=== PATIENT | male | born 1950 | race Two or more races ===

== ENCOUNTER 2022-01-13 19:27 | Inpatient (IN) | payer MEDICARE, MEDICAID ==
[~2022-01-13] VITALS: Ht 165.1 cm; Wt 61.9 kg
[2022-01-13] MEDS ORDERED: LABETALOL HCL 5 MG/ML 4ML SYRINGE IV ONE (20:30)
[2022-01-13 20:50] LABS: Basophils # (auto) 0 10 ^3/uL (0-0.2); Basophils % (auto) 0.5 % (0.0-2.0); Eosinophils # (auto) 0.6 10 ^3/uL (0-0.8); Eosinophils % (auto) 5.9 % (0.0-7.0); Hematocrit 42.7 % (41.0-53.0); Hemoglobin 14.1 g/dL (13.5-17.5); Lymphocytes # (auto) 1.7 10 ^3/uL (0.4-5.4); Mean Corpuscular Hemoglobin 28.4 pg (28.0-32.0); Mean Corpuscular Volume 85.9 fL (80.0-100.0); Monocytes # (auto) 0.7 10 ^3/uL (0-1.3); Monocytes % (auto) 7.1 % (0.0-12.0); Neutrophils # (auto) 6.5 10 ^3/uL (1.6-8.6); Neutrophils % (auto) 68.5 % (37.0-80.0); Red Blood Cells 4.97 10^6/uL (4.5-5.90); White Blood Cell 9.4 10^3/uL (4.4-10.8)
[2022-01-13 20:58] LABS: Albumin 3.7 g/dL (3.4-5.0); Calcium 8.9 mg/dL (8.5-10.1); Potassium 4.3 mmol/L (3.5-5.1)
[2022-01-13] MEDS ORDERED: CLOP75TA70 PO (20:59)
[2022-01-13] MEDS ORDERED: ASPI-543 PO (20:59)
[2022-01-13] MEDS ORDERED: METF-370 PO (20:59)
[2022-01-13] MEDS ORDERED: LISI40TA11 PO (20:59)
[2022-01-13] MEDS ORDERED: TAMS0.4C36 PO (20:59)
[2022-01-13] MEDS ORDERED: FURO40TA4 PO (20:59)
[2022-01-13] MEDS ORDERED: CARV6.2551 PO (20:59)
[2022-01-13 21:03] LABS: BUN/Creatinine Ratio 27.8; Bilirubin, Total 0.8 mg/dL (0.2-1.0); Total Protein 7.5 g/dL (6.4-8.2)
[2022-01-13] MEDS ORDERED: ASPirin 81 mg TAB PO ONE (21:30)
[2022-01-13] MEDS ORDERED: CLOPIDOGREL 300 MG TAB PO ONE (21:30)
[2022-01-13] MEDS: SODIUM CHLOR 0.9% PF (SALINE LOCK) 10ML VIAL/SYR IV SCH (21:41)
[2022-01-13 22:45] LABS: Urine Bacteria FEW /hpf (None Seen); Urine Blood TRACE /uL (Negative); Urine Specific Gravity 1.005 (1.001-1.035); Urine WBC 1 /hpf (0 - 3)
[2022-01-14] MEDS: SODIUM CHLOR 0.9% PF (SALINE LOCK) 10ML VIAL/SYR IV SCH ×2 (00:03→01:34)
[2022-01-14] MEDS ORDERED: MORPHINE SULFATE INJ 2 MG/ml SYRG IV PRN (02:15)
[2022-01-14] MEDS ORDERED: ONDANSETRON HCL 4 MG/2 ML VIAL IV PRN (02:15)
[2022-01-14] MEDS ORDERED: DEXTROSE (50%) 50ML SYRG IV PRN (02:15)
[2022-01-14] MEDS ORDERED: NITROGLYCERIN 0.4 MG SL TAB SL PRN (02:15)
[2022-01-14] MEDS ORDERED: ENOXAPARIN SOD 100 MG/1 ML SYRINGE SC ONE (02:15)
[2022-01-14] MEDS ORDERED: ACETAMINOPHEN 325 MG TAB PO PRN (02:15)
[2022-01-14] MEDS ORDERED: FUROSEMIDE 40 MG TAB PO SCH (06:00)
[2022-01-14] MEDS: InsuLIN REG 1unit/0.01ml Soln (100units/ml) SC SCH ×4 (06:47→21:17)
[2022-01-14] MEDS: ACCU-CHEK COMFORT CURVE STRIP VI SCH ×4 (06:48→21:17)
[2022-01-14] MEDS ORDERED: LISINOPRIL 20 MG TAB PO SCH (10:00)
[2022-01-14] MEDS: ASPirin 81 mg TAB PO SCH (10:17)
[2022-01-14] MEDS: PANTOPRAZOLE 40 MG TAB PO SCH (10:18)
[2022-01-14] MEDS: CLOPIDOGREL BISULFATE 75 MG TAB PO SCH (10:18)
[2022-01-14] MEDS: CARVEDILOL 3.125 MG TAB PO SCH ×2 (10:19→21:18)
[2022-01-14] MEDS ORDERED: SODIUM CHLORIDE 0.9% 1,000 ML IV ONE (13:30)
[2022-01-14 14:57] LABS: Calcium 9.1 mg/dL (8.5-10.1); Potassium 4.2 mmol/L (3.5-5.1)
[2022-01-14 15:00] LABS: BUN/Creatinine Ratio 28.5
[2022-01-14] MEDS: TAMSULOSIN HYDROCHLORIDE 0.4 MG CAP PO SCH (18:16)
[2022-01-14 20:33] VITALS: BP 130/64
[2022-01-14] MEDS ORDERED: ENOXAPARIN SOD 30 MG/0.3 ML SYRINGE SC SCH (22:00)
[2022-01-14 22:40] VITALS: BP 130/64
[2022-01-15] VITALS (10 sets, daily range): BP systolic 107–161; BP diastolic 41–62
[2022-01-15 05:59] LABS: Basophils # (auto) 0 10 ^3/uL (0-0.2); Basophils % (auto) 0.6 % (0.0-2.0); Eosinophils # (auto) 0.5 10 ^3/uL (0-0.8); Eosinophils % (auto) 7.2 % (0.0-7.0); Hematocrit 41.3 % (41.0-53.0); Hemoglobin 13.2 g/dL (13.5-17.5); Lymphocytes # (auto) 1.5 10 ^3/uL (0.4-5.4); Mean Corpuscular Hemoglobin 27.4 pg (28.0-32.0); Mean Corpuscular Hgb Conc. 31.9 g/dL (32.0-36.0); Monocytes # (auto) 0.5 10 ^3/uL (0-1.3); Monocytes % (auto) 8.6 % (0.0-12.0); Neutrophils # (auto) 3.8 10 ^3/uL (1.6-8.6); Neutrophils % (auto) 60.6 % (37.0-80.0); Nucleated Red Blood Cells % 0.1 %; Red Blood Cells 4.81 10^6/uL (4.5-5.90); Red Cell Distribution Width 14.8 % (11.8-14.3); White Blood Cell 6.3 10^3/uL (4.4-10.8)
[2022-01-15 06:04] LABS: INR 1.06 (0.9-1.15); Partial Thromboplastin Time 32.2 sec (24.6-33.4)
[2022-01-15] MEDS: SODIUM CHLOR 0.9% PF (SALINE LOCK) 10ML VIAL/SYR IV SCH ×3 (06:18→21:45)
[2022-01-15] MEDS: InsuLIN REG 1unit/0.01ml Soln (100units/ml) SC SCH ×4 (06:18→21:58)
[2022-01-15] MEDS: ACCU-CHEK COMFORT CURVE STRIP VI SCH ×4 (06:18→21:57)
[2022-01-15 06:33] LABS: BUN/Creatinine Ratio 29.5; Bilirubin, Total 0.5 mg/dL (0.2-1.0); Calcium 8.7 mg/dL (8.5-10.1); Total Protein 6.2 g/dL (6.4-8.2)
[2022-01-15] MEDS: PANTOPRAZOLE 40 MG TAB PO SCH (09:05)
[2022-01-15] MEDS: CLOPIDOGREL BISULFATE 75 MG TAB PO SCH (09:15)
[2022-01-15] MEDS: CARVEDILOL 3.125 MG TAB PO SCH ×2 (09:17→21:55)
[2022-01-15] MEDS: ASPirin 81 mg TAB PO SCH (09:18)
[2022-01-15] MEDS ORDERED: LIDOCAINE 2%HCL (LOCAL ANESTH.) INJ 20ML MDV ONE ×2 (12:33→14:00)
[2022-01-15] MEDS ORDERED: ANGIOMAX 250 MG VIAL IV ONE (13:59)
[2022-01-15] MEDS ORDERED: fentaNYL CITRATE 100 MCG/2 ML VL ONE (13:59)
[2022-01-15] MEDS ORDERED: MIDAZOLAM HCL 2MG/2ML 2ml VIAL (1mg/ml) ONE (13:59)
[2022-01-15] MEDS ORDERED: VERAPAMIL 2.5MG/ML INJ 2ML VIAL IV ONE ×2 (13:59→14:15)
[2022-01-15] MEDS ORDERED: HEPARIN SODIUM (PORCINE) 5000 UNITS/ML 1ML VIAL ONE (13:59)
[2022-01-15] MEDS ORDERED: SODIUM CHL 0.9% 0 ML ONE (14:00)
[2022-01-15] MEDS ORDERED: IODIXANOL 320MG/ML 100ML BTL IV ONE (14:00)
[2022-01-15] MEDS ORDERED: hydrALAZINE HCL 20 MG/ML VL ONE (14:15)
[2022-01-15] MEDS ORDERED: SODIUM CHL 0.9% 500 ML IV ONE (15:00)
[2022-01-15] MEDS: cloNIDine HCL 0.1 MG TAB PO PRN (17:24)
[2022-01-15] MEDS: TAMSULOSIN HYDROCHLORIDE 0.4 MG CAP PO SCH (17:25)
[2022-01-16 05:02] VITALS: BP 144/56
[2022-01-16] MEDS: SODIUM CHLOR 0.9% PF (SALINE LOCK) 10ML VIAL/SYR IV SCH ×3 (05:40→21:53)
[2022-01-16] MEDS: ACCU-CHEK COMFORT CURVE STRIP VI SCH ×4 (06:13→21:55)
[2022-01-16] MEDS: InsuLIN REG 1unit/0.01ml Soln (100units/ml) SC SCH ×4 (06:13→22:00)
[2022-01-16 06:45] LABS: Calcium 8.6 mg/dL (8.5-10.1); Potassium 4.2 mmol/L (3.5-5.1)
[2022-01-16 07:30] VITALS: BP 133/59
[2022-01-16 09:00] VITALS: BP 146/54
[2022-01-16] MEDS: ASPirin 81 mg TAB PO SCH (09:03)
[2022-01-16] MEDS: CLOPIDOGREL BISULFATE 75 MG TAB PO SCH (09:06)
[2022-01-16] MEDS: CARVEDILOL 3.125 MG TAB PO SCH ×2 (09:06→21:55)
[2022-01-16] MEDS: PANTOPRAZOLE 40 MG TAB PO SCH (09:07)
[2022-01-16 13:00] VITALS: BP 161/50
[2022-01-16] MEDS: cloNIDine HCL 0.1 MG TAB PO PRN (13:16)
[2022-01-16] MEDS: hydrALAZINE HCL 25 MG TAB PO SCH ×2 (16:05→21:54)
[2022-01-16 17:00] VITALS: BP 172/52
[2022-01-16] MEDS ORDERED: LISINOPRIL 20 MG TAB PO ONE (17:30)
[2022-01-16] MEDS: TAMSULOSIN HYDROCHLORIDE 0.4 MG CAP PO SCH (17:44)
[2022-01-16 22:00] VITALS: BP 110/65
[2022-01-16] MEDS: hydrALAZINE HCL 20 MG/ML VL IV PRN (23:20)
[2022-01-17] MEDS: cloNIDine HCL 0.1 MG TAB PO PRN ×2 (00:40→23:12)
[2022-01-17 05:00] VITALS: BP 140/62
[2022-01-17] MEDS: SODIUM CHLOR 0.9% PF (SALINE LOCK) 10ML VIAL/SYR IV SCH ×3 (06:14→22:05)
[2022-01-17] MEDS: ACCU-CHEK COMFORT CURVE STRIP VI SCH ×4 (06:15→22:07)
[2022-01-17] MEDS: InsuLIN REG 1unit/0.01ml Soln (100units/ml) SC SCH ×4 (06:19→22:00)
[2022-01-17 09:00] VITALS: BP 167/51
[2022-01-17] MEDS: PANTOPRAZOLE 40 MG TAB PO SCH (09:29)
[2022-01-17] MEDS: CLOPIDOGREL BISULFATE 75 MG TAB PO SCH (09:30)
[2022-01-17] MEDS: hydrALAZINE HCL 25 MG TAB PO SCH ×3 (09:30→22:06)
[2022-01-17] MEDS: CARVEDILOL 3.125 MG TAB PO SCH ×2 (09:30→22:06)
[2022-01-17] MEDS: ASPirin 81 mg TAB PO SCH (09:30)
[2022-01-17 12:45] VITALS: BP 135/52
[2022-01-17] MEDS: hydrALAZINE HCL 20 MG/ML VL IV PRN (14:49)
[2022-01-17] MEDS ORDERED: HYDR50TA15 PO (16:39)
[2022-01-17] MEDS ORDERED: CLON0.1T PO (16:41)
[2022-01-17 16:43] VITALS: BP 157/49
[2022-01-17] MEDS ORDERED: LISINOPRIL 20 MG TAB PO SCH (17:00)
[2022-01-17] MEDS: TAMSULOSIN HYDROCHLORIDE 0.4 MG CAP PO SCH (17:44)
[2022-01-17 22:00] VITALS: BP 180/70
[2022-01-17] MEDS ORDERED: ATORVASTATIN 20 MG TAB PO SCH (22:00)
[2022-01-18 05:00] VITALS: BP 135/62
[2022-01-18] MEDS: hydrALAZINE HCL 25 MG TAB PO SCH ×3 (06:17→14:30)
[2022-01-18] MEDS: ACCU-CHEK COMFORT CURVE STRIP VI SCH ×3 (06:22→17:00)
[2022-01-18] MEDS: SODIUM CHLOR 0.9% PF (SALINE LOCK) 10ML VIAL/SYR IV SCH ×2 (06:22→14:00)
[2022-01-18] MEDS: InsuLIN REG 1unit/0.01ml Soln (100units/ml) SC SCH ×3 (06:23→17:00)
[2022-01-18 09:00] VITALS: BP 146/49
[2022-01-18] MEDS: PANTOPRAZOLE 40 MG TAB PO SCH (09:34)
[2022-01-18] MEDS: ASPirin 81 mg TAB PO SCH (09:34)
[2022-01-18] MEDS: CLOPIDOGREL BISULFATE 75 MG TAB PO SCH (09:34)
[2022-01-18] MEDS: CARVEDILOL 3.125 MG TAB PO SCH (09:34)
[2022-01-18 13:00] VITALS: BP 153/60
[2022-01-18 16:01] VITALS: BP 154/62
[2022-01-18 16:39] VITALS: BP 169/56
== END 2022-01-18 17:36 | disposition home health service (06) | DRG 280 ==
LOC: EDBD 19:27 → ER 19:27 → TELE 01-14 02:19 → TELE-EAST 01-14 18:52
PROVIDERS: ADMIT Nurse Practitioner; ATTEND Internal Medicine
PROC: B211YZZ Fluoroscopy of Multiple Coronary Arteries using Other Contrast (ICD-10-PCS; principal; 2022-01-15)
DX: I21.4 Non-ST elevation (NSTEMI) myocardial infarction (principal); I50.23 Acute on chronic systolic (congestive) heart failure; I42.8 Other cardiomyopathies; I13.0 Hypertensive heart and chronic kidney disease with heart failure and stage 1 through stage 4 chronic kidney disease, or unspecified chronic kidney disease; I16.0 Hypertensive urgency; E11.22 Type 2 diabetes mellitus with diabetic chronic kidney disease; E11.65 Type 2 diabetes mellitus with hyperglycemia; N40.0 Benign prostatic hyperplasia without lower urinary tract symptoms; Z20.822 Contact with and (suspected) exposure to COVID-19; I25.10 Atherosclerotic heart disease of native coronary artery without angina pectoris; E66.9 Obesity, unspecified; Z68.29 Body mass index [BMI] 29.0-29.9, adult; Z86.73 Personal history of transient ischemic attack (TIA), and cerebral infarction without residual deficits; Z79.84 Long term (current) use of oral hypoglycemic drugs; N18.9 Chronic kidney disease, unspecified
CPT/HCPCS: 36415; 70450; 71045; 80048; 80053; 80061; 81001; 82962; 83036; 83735; 83880; 84443; 84484; 85025; 85610; 85730; 87426; 93005; 93306; 96361; 96372; 96374; 99152; 99153; G0378; J2250; J3490; Q9967

== ENCOUNTER 2022-01-21 19:46 | Inpatient (IN) | payer MEDICARE, MEDICAID ==
[~2022-01-21] VITALS: Ht 165.1 cm; Wt 62.3 kg
[~2022-01-21 19:46] MED LIST: ASPI-543 PO; CARV6.2551 PO; CLON0.1T PO; CLOP75TA70 PO; FURO40TA4 PO; HYDR50TA15 PO; METF-370 PO; TAMS0.4C36 PO
[2022-01-21] MEDS ORDERED: CHOL20007 PO (19:56)
[2022-01-21] MEDS ORDERED: TETANUS-DIPTH-ACEL PERTUSSIS 0.5ML SYR Tdap IM ONE (20:15)
[2022-01-21] MEDS ORDERED: cloNIDine 0.2 mg/24hr 7DAY PATCH TD ONE (20:15)
[2022-01-21] MEDS ORDERED: FURO20TA3 PO (20:18)
[2022-01-21 21:18] LABS: Basophils # (auto) 0.1 10 ^3/uL (0-0.2); Basophils % (auto) 1.3 % (0.0-2.0); Eosinophils # (auto) 0.5 10 ^3/uL (0-0.8); Eosinophils % (auto) 6.7 % (0.0-7.0); Hematocrit 37.1 % (41.0-53.0); Hemoglobin 12.4 g/dL (13.5-17.5); Lymphocytes # (auto) 1.1 10 ^3/uL (0.4-5.4); Lymphocytes % (auto) 13.1 % (10.0-50.0); Mean Corpuscular Hgb Conc. 33.3 g/dL (32.0-36.0); Mean Corpuscular Volume 87.1 fL (80.0-100.0); Monocytes # (auto) 0.6 10 ^3/uL (0-1.3); Monocytes % (auto) 6.8 % (0.0-12.0); Neutrophils # (auto) 5.9 10 ^3/uL (1.6-8.6); Neutrophils % (auto) 72.1 % (37.0-80.0); Red Blood Cells 4.26 10^6/uL (4.5-5.90); Red Cell Distribution Width 14.9 % (11.8-14.3); White Blood Cell 8.2 10^3/uL (4.4-10.8)
[2022-01-21 21:31] LABS: Albumin 3.4 g/dL (3.4-5.0); BUN/Creatinine Ratio 27.2; Calcium 8.9 mg/dL (8.5-10.1); Potassium 4.2 mmol/L (3.5-5.1)
[2022-01-21 21:40] LABS: Bilirubin, Total 0.4 mg/dL (0.2-1.0); Total Protein 6.8 g/dL (6.4-8.2)
[2022-01-21] MEDS ORDERED: ACETAMINOPHEN 325 MG TAB PO PRN (23:30)
[2022-01-21] MEDS ORDERED: NITROGLYCERIN 0.4 MG SL TAB SL PRN (23:30)
[2022-01-21] MEDS ORDERED: HYDROcodone-ACET 5/325MG TAB PO PRN (23:30)
[2022-01-21] MEDS ORDERED: MORPHINE SULFATE INJ 2 MG/ml SYRG IV PRN (23:30)
[2022-01-21] MEDS ORDERED: ONDANSETRON HCL 4 MG/2 ML VIAL IV PRN (23:30)
[2022-01-21] MEDS ORDERED: DOCUSATE SOD 100 MG CAP PO PRN (23:30)
[2022-01-21] MEDS ORDERED: cloNIDine HCL 0.1 MG TAB PO PRN (23:45)
[2022-01-21] MEDS ORDERED: DEXTROSE (50%) 50ML SYRG IV PRN (23:45)
[2022-01-22 01:32] LABS: Urine Bacteria FEW /hpf (None Seen); Urine Blood 1+ /uL (Negative); Urine Specific Gravity 1.004 (1.001-1.035); Urine WBC 1 /hpf (0 - 3)
[2022-01-22] MEDS: hydrALAZINE HCL 25 MG TAB PO SCH ×4 (06:00→18:18)
[2022-01-22] MEDS: FUROSEMIDE 40 MG TAB PO SCH ×2 (06:35→18:18)
[2022-01-22] MEDS: ACCU-CHEK COMFORT CURVE STRIP VI SCH ×4 (06:55→21:48)
[2022-01-22] MEDS: InsuLIN REG 1unit/0.01ml Soln (100units/ml) SC SCH ×4 (06:55→21:49)
[2022-01-22] MEDS: metFORMIN HYDROCHLORIDE 500 MG TAB PO SCH (09:58)
[2022-01-22] MEDS: PANTOPRAZOLE 40 MG TAB PO SCH (09:59)
[2022-01-22] MEDS: ASPirin-EC 81 mg tab PO SCH (09:59)
[2022-01-22] MEDS: CARVEDILOL 3.125 MG TAB PO SCH ×2 (09:59→21:48)
[2022-01-22 17:00] VITALS: BP 132/56
[2022-01-22] MEDS: TAMSULOSIN HYDROCHLORIDE 0.4 MG CAP PO SCH (18:18)
[2022-01-22 20:00] VITALS: BP 119/56
[2022-01-22] MEDS: ATORVASTATIN 20 MG TAB PO SCH (21:48)
[2022-01-22 22:00] VITALS: BP 119/56
[2022-01-23 05:00] VITALS: BP 143/64
[2022-01-23] MEDS: FUROSEMIDE 20 MG TAB PO SCH ×2 (05:33→18:14)
[2022-01-23] MEDS: ACCU-CHEK COMFORT CURVE STRIP VI SCH ×4 (05:33→22:01)
[2022-01-23] MEDS: InsuLIN REG 1unit/0.01ml Soln (100units/ml) SC SCH ×4 (05:52→22:00)
[2022-01-23 09:00] VITALS: BP 127/52
[2022-01-23] MEDS: PANTOPRAZOLE 40 MG TAB PO SCH (09:33)
[2022-01-23] MEDS: metFORMIN HYDROCHLORIDE 500 MG TAB PO SCH (09:34)
[2022-01-23] MEDS: CARVEDILOL 3.125 MG TAB PO SCH ×2 (09:34→22:01)
[2022-01-23] MEDS: ASPirin-EC 81 mg tab PO SCH (09:34)
[2022-01-23 13:00] VITALS: BP 134/54
[2022-01-23 17:00] VITALS: BP 125/53
[2022-01-23] MEDS: TAMSULOSIN HYDROCHLORIDE 0.4 MG CAP PO SCH (18:15)
[2022-01-23 22:00] VITALS: BP 134/58
[2022-01-23] MEDS: ATORVASTATIN 20 MG TAB PO SCH (22:01)
[2022-01-24] VITALS (7 sets, daily range): BP systolic 122–138; BP diastolic 53–66
[2022-01-24] MEDS: InsuLIN REG 1unit/0.01ml Soln (100units/ml) SC SCH ×4 (06:38→21:16)
[2022-01-24] MEDS: ACCU-CHEK COMFORT CURVE STRIP VI SCH ×4 (06:38→21:15)
[2022-01-24] MEDS: FUROSEMIDE 20 MG TAB PO SCH ×2 (06:38→18:24)
[2022-01-24] MEDS: PANTOPRAZOLE 40 MG TAB PO SCH (10:00)
[2022-01-24] MEDS: ASPirin-EC 81 mg tab PO SCH (10:00)
[2022-01-24] MEDS: metFORMIN HYDROCHLORIDE 500 MG TAB PO SCH (10:01)
[2022-01-24] MEDS: CARVEDILOL 3.125 MG TAB PO SCH ×2 (10:01→21:13)
[2022-01-24] MEDS: TAMSULOSIN HYDROCHLORIDE 0.4 MG CAP PO SCH (18:23)
[2022-01-24] MEDS: ATORVASTATIN 20 MG TAB PO SCH (21:14)
[2022-01-25] MEDS: FUROSEMIDE 20 MG TAB PO SCH (05:25)
[2022-01-25 05:27] VITALS: BP 157/80
[2022-01-25] MEDS: ACCU-CHEK COMFORT CURVE STRIP VI SCH ×3 (06:22→17:00)
[2022-01-25] MEDS: InsuLIN REG 1unit/0.01ml Soln (100units/ml) SC SCH ×3 (06:22→17:00)
[2022-01-25 08:44] VITALS: BP 166/75
[2022-01-25 09:35] VITALS: BP 186/58
[2022-01-25] MEDS: PANTOPRAZOLE 40 MG TAB PO SCH (09:54)
[2022-01-25] MEDS: ASPirin-EC 81 mg tab PO SCH (09:54)
[2022-01-25] MEDS: metFORMIN HYDROCHLORIDE 500 MG TAB PO SCH (09:55)
[2022-01-25] MEDS ORDERED: CARVEDILOL 3.125 MG TAB PO SCH (10:00)
[2022-01-25] MEDS ORDERED: ATOR10TA52 PO (12:19)
[2022-01-25] MEDS ORDERED: CLON0.2D3 TD ×2 (12:19→13:02)
[2022-01-25 12:59] VITALS: BP 135/76
[2022-01-25 16:37] VITALS: BP 152/78
== END 2022-01-25 18:06 | disposition home health service (06) | DRG 281 ==
LOC: ER 19:46 → EDBD 19:46 → EDUNIT# 19:46 → TELE 23:31 → TELE-WESTW 01-22 11:47
PROVIDERS: ADMIT Internal Medicine; ATTEND Internal Medicine
PROC: 3E0234Z Introduction of Serum, Toxoid and Vaccine into Muscle, Percutaneous Approach (ICD-10-PCS; principal; 2022-01-21)
DX: I21.4 Non-ST elevation (NSTEMI) myocardial infarction (principal); I13.0 Hypertensive heart and chronic kidney disease with heart failure and stage 1 through stage 4 chronic kidney disease, or unspecified chronic kidney disease; I16.0 Hypertensive urgency; Z23 Encounter for immunization; Z20.822 Contact with and (suspected) exposure to COVID-19; F41.9 Anxiety disorder, unspecified; E11.65 Type 2 diabetes mellitus with hyperglycemia; I50.9 Heart failure, unspecified; E78.5 Hyperlipidemia, unspecified; N18.32 Chronic kidney disease, stage 3b; E11.22 Type 2 diabetes mellitus with diabetic chronic kidney disease
CPT/HCPCS: 36415; 71045; 80053; 81001; 82962; 83880; 84484; 85025; 87426; 90471; 90715; 93005; 97163; G0378